=== PATIENT | male | born 1985 ===

== ENCOUNTER 2024-09-12 06:30 | Day surgery (SDC) | payer OTHER ==
[2024-09-04 12:56] LABS: URINE APPEARANCE Clear; URINE BILIRRUBIN Negative (NEGATIVE); URINE BLOOD Negative; URINE COLOR Yellow; URINE GLUCOSE Negative (NEGATIVE); URINE KETONE Negative (NEGATIVE); URINE LEUKOCYTE Negative; URINE NITRATE Negative; URINE PROTEIN Negative (NEGATIVE); URINE UROBILINOGEN 0.2 E.U./dl
[2024-09-04 12:59] LABS: URINE EPITHELIAL CELLS 1.4 uL (0.0-38.8); URINE RBC 2.5 uL (0.0-20.8)
[2024-09-04 13:14] LABS: INR 1.0
[2024-09-04 13:24] VITALS: BP 145/86
[2024-09-04 13:39] LABS: URINE BACTERIA 1.2 uL (0.0-1933); URINE CAST 0.00 uL (0.0-1.40); URINE WBC 1.1 uL (0.0-23.2)
[~2024-09-12] VITALS: Ht 170.2 cm; Wt 103.4 kg
[2024-09-12] MEDS ORDERED: DICLOFENAC SODIUM 100 MG SUPP.RECT RECTAL ONE (10:30)
== END 2024-09-12 12:50 | disposition home or self-care (01) ==
LOC: CIR.AMB 06:30
PROVIDERS: ATTEND Internal Medicine
DX: K85.90 Acute pancreatitis without necrosis or infection, unspecified (principal); R93.3 Abnormal findings on diagnostic imaging of other parts of digestive tract